=== PATIENT | male | born 1960 | race African-American/Black ===

== ENCOUNTER 2020-09-29 10:08 | Emergency (ER) | payer BC ==
[~2020-09-29] VITALS: Ht 167.6 cm; Wt 70.0 kg
[~2020-09-29 10:08] MED LIST: ALBU18HF2 IH; ALBU6.7H9 IH; OMEP20TA15 PO; P50 PO
[2020-09-29] MEDS ORDERED: IPRATROPIUM BROMIDE (0.02%) 0.5MG/2.5ML NEB HHN STA (13:35)
[2020-09-29] MEDS ORDERED: ALBUTEROL (0.083%) 2.5MG/3ML NEB HHN STA (13:35)
[2020-09-29] MEDS ORDERED: PREDNISONE 20MG TABLET PO STA (13:35)
[2020-09-29 14:33] VITALS: BP 156/84
== END 2020-09-29 14:34 | disposition left against medical advice (07) ==
LOC: ER 10:08
DX: J44.1 Chronic obstructive pulmonary disease with (acute) exacerbation (principal); F17.200 Nicotine dependence, unspecified, uncomplicated; J45.909 Unspecified asthma, uncomplicated; Z88.8 Allergy status to other drugs, medicaments and biological substances; Z90.81 Acquired absence of spleen
CPT/HCPCS: 71045; 99283; J7512; L1830

== ENCOUNTER 2020-10-05 07:57 | Emergency (ER) | payer BC ==
[~2020-10-05] VITALS: Ht 172.7 cm; Wt 75.0 kg
[2020-10-05] MEDS ORDERED: PREDNISONE 20MG TABLET PO STA (08:17)
[2020-10-05] MEDS ORDERED: ALBU6.7H9 INH (10:10)
[2020-10-05] MEDS ORDERED: P50 PO (10:10)
[2020-10-05 10:20] VITALS: BP 138/87
== END 2020-10-05 10:37 | disposition home or self-care (01) ==
LOC: ER 07:57
DX: J45.901 Unspecified asthma with (acute) exacerbation (principal); F31.9 Bipolar disorder, unspecified; Z88.0 Allergy status to penicillin; Z90.81 Acquired absence of spleen
CPT/HCPCS: 99283; J7512

== ENCOUNTER 2020-12-22 14:17 | Emergency (ER) | payer BC, MEDICARE ==
[~2020-12-22] VITALS: Ht 167.6 cm; Wt 75.0 kg
[~2020-12-22 14:17] MED LIST changes: +ALBU6.7H9 INH
[2020-12-22] MEDS ORDERED: METHYLPREDNISOLONE SOD SUCC 125 MG/2 ML VIAL IV STA (14:27)
[2020-12-22] MEDS ORDERED: IPRATROPIUM BROMIDE (0.02%) 0.5MG/2.5ML NEB HHN STA (14:27)
[2020-12-22] MEDS ORDERED: ALBUTEROL (0.083%) 2.5MG/3ML NEB HHN STA (14:27)
[2020-12-22] MEDS ORDERED: AZITHROMYCIN 500MG/250ML 250 ML IV ONE (15:00)
[2020-12-22] MEDS ORDERED: CEFTRIAXONE 1 G PREMIX 50 ML IV ONE (15:00)
[2020-12-22] MEDS ORDERED: SODIUM CHLORIDE 0.9% 1,000 ML IV ONE (15:00)
[2020-12-22] MEDS ORDERED: MAGNESIUM 2 G PREMIX 50 ML IV ONE (15:00)
[2020-12-22 15:14] LABS: BASOPHILS % 0.9 % (0.0-2.0); HEMATOCRIT. 52.9 % (42.0-52.0); HEMOGLOBIN. 17.4 g/dL (14.0-18.0); MEAN CORPUSCULAR HEMOGLOBIN 29.2 pg (28.0-32.0); MEAN CORPUSCULAR VOLUME 88.6 fL (80.0-94.0); MONOCYTES % 6.5 % (2.0-8.0); NEUTROPHILS % 73.6 % (40.0-76.0); PLATELET 424 x1000/uL (130-400); RED BLOOD CELL COUNT 5.97 mill/uL (4.7-6.1); RED CELL DISTRIBUTION WIDTH 13.4 % (11.6-14.6)
[2020-12-22 15:17] LABS: CHLORIDE 107 mEq/L (98-107)
[2020-12-22] MEDS ORDERED: ALBU6.7H9 INH (16:40)
[2020-12-22] MEDS ORDERED: P20 MT (16:40)
[2020-12-22] MEDS ORDERED: DOXY100C5 MT (16:47)
[2020-12-22 17:00] VITALS: BP 140/85
== END 2020-12-22 17:28 | disposition home or self-care (01) ==
LOC: ER 14:17
DX: J45.901 Unspecified asthma with (acute) exacerbation (principal); J18.9 Pneumonia, unspecified organism; R45.1 Restlessness and agitation; F31.9 Bipolar disorder, unspecified; F17.290 Nicotine dependence, other tobacco product, uncomplicated; Z98.890 Other specified postprocedural states; Z79.899 Other long term (current) drug therapy; Z88.8 Allergy status to other drugs, medicaments and biological substances
CPT/HCPCS: 36415; 71045; 80053; 85025; 94644; 96365; 96366; 96368; 96375; 99284; 99406; J0456; J0696; J2930; J3475

== ENCOUNTER 2021-01-27 08:39 | Emergency (ER) | payer MEDICARE, OTHER, MEDICAID ==
[~2021-01-27] VITALS: Ht 167.6 cm; Wt 68.0 kg
[~2021-01-27 08:39] MED LIST changes: +DOXY100C5 MT; +P20 MT
[2021-01-27 08:40] VITALS: BP 153/82
[2021-01-27] MEDS ORDERED: ALBUTEROL (0.083%) 2.5MG/3ML NEB HHN STA ×2 (08:51→11:09)
[2021-01-27] MEDS ORDERED: METHYLPREDNISOLONE SOD SUCC 125 MG/2 ML VIAL IV STA (08:51)
[2021-01-27] MEDS ORDERED: IPRATROPIUM BROMIDE (0.02%) 0.5MG/2.5ML NEB HHN STA ×2 (08:51→11:09)
[2021-01-27] MEDS ORDERED: ALBUTEROL (0.5%) 2.5MG/0.5ML NEB HHN ONE (09:03)
[2021-01-27] MEDS ORDERED: IPRATROPIUM BROMIDE (0.02%) 0.5MG/2.5ML NEB ONE (09:03)
[2021-01-27 09:31] LABS: BASOPHILS % 0.7 % (0.0-2.0); EOSINOPHILS % 12.2 % (0.0-5.0); HEMATOCRIT. 51.4 % (42.0-52.0); HEMOGLOBIN. 17.4 g/dL (14.0-18.0); LYMPHOCYTES % 15.8 % (20.0-50.0); MEAN CORPUSCULAR HEMOGLOBIN 29.5 pg (28.0-32.0); MEAN CORPUSCULAR VOLUME 87.4 fL (80.0-94.0); MEAN PLATELET VOLUME 8.9 fl (7.4-10.4); MONOCYTES % 10.2 % (2.0-8.0); NEUTROPHILS % 61.1 % (40.0-76.0); PLATELET 298 x1000/uL (130-400); RED BLOOD CELL COUNT 5.88 mill/uL (4.7-6.1); RED CELL DISTRIBUTION WIDTH 13.6 % (11.6-14.6)
[2021-01-27 09:39] LABS: CHLORIDE 103 mEq/L (98-107)
[2021-01-27] MEDS ORDERED: LEVOFLOXACIN 250MG TABLET PO ONE (11:15)
[2021-01-27] MEDS ORDERED: LEVO250T58 PO (12:18)
[2021-01-27] MEDS ORDERED: ALBU6.7H9 INH (12:18)
[2021-01-27] MEDS ORDERED: P50 PO (12:18)
== END 2021-01-27 12:42 | disposition home or self-care (01) ==
LOC: ER 08:39
DX: J18.9 Pneumonia, unspecified organism (principal); R00.0 Tachycardia, unspecified; Z20.822 Contact with and (suspected) exposure to COVID-19
CPT/HCPCS: 36415; 71045; 80053; 83880; 84484; 85025; 87426; 93005; 94640; 96374; 99284; J2930

== ENCOUNTER 2021-04-16 13:25 | Emergency (ER) | payer MEDICARE, MEDICAID ==
[~2021-04-16] VITALS: Ht 177.8 cm; Wt 77.0 kg
[~2021-04-16 13:25] MED LIST changes: +LEVO250T58 PO
[2021-04-16 13:32] VITALS: BP 148/78
[2021-04-16] MEDS ORDERED: PREDNISONE 20MG TABLET PO ONE (14:15)
[2021-04-16] MEDS ORDERED: ALBUTEROL (0.083%) 2.5MG/3ML NEB HHN ONE (14:15)
[2021-04-16] MEDS ORDERED: AZITHROMYCIN 500 MG TABLET PO ONE (15:00)
[2021-04-16] MEDS ORDERED: DOXY100C5 MT ×3 (15:10→16:11)
[2021-04-16] MEDS ORDERED: ALBU18HF2 IH ×3 (15:10→16:10)
[2021-04-16] MEDS ORDERED: P50 PO ×3 (15:10→16:10)
[2021-04-16] MEDS ORDERED: DOXYCYCLINE HYCLATE 100MG CAPSULE PO ONE (15:15)
[2021-04-17] MEDS ORDERED: P50 MT (06:39)
[2021-04-17] MEDS ORDERED: DOXY100C5 MT (06:39)
[2021-04-17] MEDS ORDERED: ALBU6.7H9 INH (06:39)
== END 2021-04-16 16:29 | disposition left against medical advice (07) ==
LOC: ER 13:25
DX: J44.1 Chronic obstructive pulmonary disease with (acute) exacerbation (principal); J18.9 Pneumonia, unspecified organism; F31.9 Bipolar disorder, unspecified; J45.909 Unspecified asthma, uncomplicated; Z79.899 Other long term (current) drug therapy
CPT/HCPCS: 71045; 93005; 94640; 99283; J7512

== ENCOUNTER 2021-04-17 05:54 | Emergency (ER) | payer MEDICARE, MEDICAID ==
[~2021-04-17] VITALS: Ht 175.3 cm; Wt 78.1 kg
[2021-04-17 05:58] VITALS: BP 133/88
[2021-04-17] MEDS ORDERED: PREDNISONE 20MG TABLET PO STA (06:08)
[2021-04-17] MEDS ORDERED: ALBUTEROL (0.083%) 2.5MG/3ML NEB HHN STA (06:08)
[2021-04-17] MEDS ORDERED: ALBU6.7H9 INH (06:39)
[2021-04-17] MEDS ORDERED: P50 MT (06:39)
[2021-04-17] MEDS ORDERED: DOXY100C5 MT (06:39)
== END 2021-04-17 06:48 | disposition home or self-care (01) ==
LOC: ER 05:54
DX: R06.03 Acute respiratory distress (principal); J44.9 Chronic obstructive pulmonary disease, unspecified; Z88.8 Allergy status to other drugs, medicaments and biological substances
CPT/HCPCS: 71045; 99283; J7512